=== PATIENT | female | born 1960 | race Caucasian/White ===

== ENCOUNTER 2020-01-23 10:37 | Outpatient (CLI) | payer OTHER, SELFPAY ==
--- NOTE | ~2020-01-23 | PE_ITS ---
EXAMINATION: PET skull to mid thigh DATE: 01/23/2020 13:15 INDICATION: Right upper lobe pulmonary nodule. TECHNIQUE: Blood glucose level was 141 mg/dL. 10.418 mCi of 18-fluorodeoxyglucose (18-FDG) was admini stered i.v. Low dose computed tomography (CT) images were acquired from the base of the brain to the proximal thighs for attenuation correction and anatomic localization. Positron emission tomography (P ET) images were acquired in the same distribution beginning 55 minutes after injection. Images includ ing fused PET/CT images were reconstructed in axial, coronal, and sagittal planes. Automated exposure control technique was employed. The dose-length product was 504.03mGy-cm. COMPARISON: None FINDINGS: Head/neck: There is symmetric increased activity in the oral cavity, palatine tonsils, laryngeal muscles and ocu lar muscles without CT correlate, likely physiologic. No pathologically enlarged cervical lymphadenop athy or suspicious foci of increased FDG uptake in the visualized head or neck. Chest: Linear and bandlike regions of consolidation extending across the right upper lobe with configuration favoring discoid atelectasis/scarring. There is no significant increased FDG uptake along the region of scarring. Remainder of the lungs are clear. No other airspace disease, suspicious pulmonary nodul es or pleural effusion. Heart size is normal. No pericardial effusion. Thoracic aorta is normal in ca liber. No pathologically enlarged thoracic lymphadenopathy. Mild synovial FDG uptake at the bilateral shoulders, sternoclavicular and sternomanubrial articulations. No other suspicious foci of abnormal FDG uptake in the thorax. Abdomen/pelvis/proximal thighs: Physiologic renal accumulation and excretion of FDG activity in the kidneys, bladder and along portio ns of ureters. Normal degree and heterogenous pattern of increased uptake throughout the liver withou t radiologic correlate or dominant FDG avid lesion. A few gallstones in the dependent aspect of the n ormal-appearing gallbladder. The pancreas, spleen and bilateral adrenal glands are normal. Mild uptak e scattered throughout the bowels without radiologic correlate, also likely physiologic. Normal appen kristi. Retroverted uterus and bilateral adnexa are unremarkable. No other abnormal foci of increased FD G uptake or pathologically enlarged lymphadenopathy in the abdomen, pelvis or proximal thighs. Musculoskeletal: To moderate cervical spondylosis. Chronic superior endplate compression fracture at L2. No suspicious lytic, blastic or FDG avid bone lesions. Mild increased uptake overlying the right and to lesser deg ree left greater trochanters suggesting trochanteric bursitis. IMPRESSION: 1. No significant FDG uptake along linear and bandlike consolidation in the right upper lobe and favo r atelectasis over pneumonia or malignancy. If earlier prior outside imaging is available for compari son would consider six-month follow-up low-dose noncontrast chest CT. 2. No other suspicious foci of abnormal FDG uptake to suggest metastatic disease. Reviewed, dictated and finalized at location A. IMPRESSION: 1. No significant FDG uptake along linear and bandlike consolidation in the rig ht upper lobe and favor atelectasis over pneumonia or malignancy. If earlier pr ior outside imaging is available for comparison would consider six-month follow -up low-dose noncontrast chest CT. 2. No other suspicious foci of abnormal FDG uptake to suggest metastatic diseas e.
[2020-01-23 11:07] LABS: Glucose Point of Care 141 (65-105)
== END 2020-01-23 10:38 | disposition home or self-care (01) ==
PROVIDERS: PCP Internal Medicine; Visit Provider Internal Medicine
DX: R91.1 Solitary pulmonary nodule (principal)
CPT/HCPCS: 78815; A9552